=== PATIENT | female | born 1980 | race Caucasian/White ===

== ENCOUNTER 2018-04-14 13:01 | Inpatient (IN) | payer BC ==
[2018-04-14] MEDS: SOD CHLORIDE 0.9% 1,000 ML IV (13:34)
[2018-04-14 13:57] LABS: ABNORMAL IP MESSAGE 1; HEMATOCRIT 19.3 % (37.0-47.0); MEAN CORPUSCULAR HEMOGLOBIN 14.5 pg (29.0-33.0); MEAN CORPUSCULAR HGB CONC 24.9 g/dl (32.0-37.0); MEAN CORPUSCULAR VOLUME 58.5 fl (82.0-101.0); MEAN PLATELET VOLUME 8.4 fl (7.4-10.4); PLATELET COUNT 1128 10^3/UL (140-415); RETICULOCYTE COUNT # 0.031 X10^6 (0.020-0.110); RETICULOCYTE COUNT % 0.9 % (0.5-1.5)
[2018-04-14 13:57] LABS: WHITE BLOOD COUNT 5.1 10^3/ul (4.8-10.8)
[2018-04-14 13:59] LABS: ADD UMIC YES; UR ASCORBIC ACID NEGATIVE (NEGATIVE); UR BACTERIA FEW /HPF (NONE SEEN); UR BILIRUBIN (Dip) NEGATIVE (NEGATIVE); UR BLOOD (Dip) NEGATIVE (NEGATIVE); UR CLARITY CLEAR (CLEAR); UR COLOR YELLOW (YELLOW); UR GLUCOSE (Dip) NEGATIVE (NEGATIVE); UR KETONES (Dip) NEGATIVE (NEGATIVE); UR LEUKOCYTE ESTERASE (Dip) TRACE Leu/ul (NEGATIVE); UR NITRITE (Dip) NEGATIVE (NEGATIVE); UR RBC 0 /HPF (0-5); UR SQUAMOUS EPITHELIAL CELL FEW /HPF (FEW); UR TOTAL PROTEIN (Dip) NEGATIVE (NEGATIVE); UR UROBILINOGEN (Dip) NEGATIVE (NEGATIVE); UR WBC 1 /HPF (0-5)
[2018-04-14 14:07] LABS: IRON 15 ug/dl (35-150)
[2018-04-14 14:08] LABS: ADD MAN DIFF? YES; ALANINE AMINOTRANSFERASE 14 IU/L (13-69); ALBUMIN 4.8 g/dl (3.3-4.9); ALBUMIN/GLOBULIN RATIO 1.26; ALKALINE PHOSPHATASE 59 IU/L (42-121); ANION GAP 17 (5-13); ASPARTATE AMINO TRANSFERASE 32 IU/L (15-46); BILIRUBIN,INDIRECT 0.2 mg/dl (0-1.1); BILIRUBIN,TOTAL 0.2 mg/dl (0.2-1.3); BLOOD UREA NITROGEN 8 mg/dl (7-20); CALCIUM 9.1 mg/dl (8.4-10.2); CARBON DIOXIDE 23 mmol/L (21-31); CHLORIDE 99 mmol/L (97-110); CREATININE 0.48 mg/dl (0.44-1.00); Estimated GFR > 60 mL/min (>60); GLUCOSE 97 mg/dl (70-220); HEMOGLOBIN 4.8 g/dl (12.0-16.0); LACTATE DEHYDROGENASE 418 IU/L (313-618); POSITIVE DIFF @See below; POTASSIUM 3.8 mmol/L (3.5-5.1); SODIUM 139 mmol/L (135-144); TOTAL PROTEIN 8.6 g/dl (6.1-8.1)
[2018-04-14 14:16] LABS: % IRON SATURATION 3 % SAT (22-52); TOTAL IRON BINDING CAPACITY 475 ug/dl (241-421)
[2018-04-14 14:45] LABS: FERRITIN 1.7 ng/ml (6.2-137.0)
[2018-04-14 14:46] LABS: ANISOCYTOSIS 3+ (0-0); BAND NEUTROPHILS % (M) 1 % (0-4); BASOPHIL #M 0.1 10^3/ul (0.0-0.0); BASOPHILS % (M) 2 % (0-2); EOSINOPHILS % (M) 3 % (0-7); GIANT THROMBO% (M) 2 % (0-0); HYPOCHROMASIA 3+ (0-0); LYMPHOCYTES % (M) 40 % (15-51); MICROCYTOSIS 3+ (0-0); MONOCYTE #M 0.3 10^3/ul (0.3-0.9); MONOCYTES % (M) 6 % (0-11); PLATELET ESTIMATE INCREASED; POIKILOCYTOSIS 2+ (0-0); POLYCHROMASIA 3+ (0-0); REACTIVE LYMPHOCYTES #M 0.1 10^3/ul (0.0-0.0); REACTIVE LYMPHOCYTES% (M) 2 % (0-0); SCHISTOCYTES 1+ (0-0); SEG NEUT #M 2.3 10^3/ul (1.6-7.5); SEGMENTED NEUTROPHILS (M) % 46 % (39-77); SMUDGE%M 2 % (0-0); STOMATOCYTES 1+ (0-0)
[2018-04-14] MEDS ORDERED: ACETAMINOPHEN 325 MG TAB PO (16:00)
[2018-04-14] MEDS ORDERED: ONDANSETRON 4 MG INJ IV (16:00)
[2018-04-14] MEDS ORDERED: DOCUSATE SODIUM 100 MG CAP PO (17:30)
[2018-04-14] MEDS: SOD FERRIC GLUC COMPLX 125 MG in SOD CHLORIDE 0.9% 100 ML IVPB (17:44)
[2018-04-14 18:33] LABS: FOLATE 11.2 ng/ml (2.8-20.0)
[2018-04-15 04:01] LABS: ADD MAN DIFF? NO
[2018-04-15 04:13] LABS: HEMOGLOBIN A1C 5.5 % (0-5.9)
[2018-04-15 04:17] LABS: ABNORMAL IP MESSAGE 1; BASOPHIL # 0.1 10^3/ul (0.0-0.1); BASOPHILS % 1.4 % (0.0-2.0); EOSINOPHILS # 0.1 10^3/ul (0.0-0.5); HEMOGLOBIN 7.1 g/dl (12.0-16.0); LYMPHOCYTES # 1.9 10^3/ul (0.8-2.9); LYMPHOCYTES % 33.3 % (15.0-51.0); MEAN CORPUSCULAR HGB CONC 28.6 g/dl (32.0-37.0); MEAN PLATELET VOLUME 8.3 fl (7.4-10.4); MONOCYTE # 0.6 10^3/ul (0.3-0.9); MONOCYTES % 10.6 % (0.0-11.0); NEUTROPHIL # 3.1 10^3/ul (1.6-7.5); NEUTROPHILS % 53.4 % (39.0-77.0); NUCLEATED RED BLOOD CELLS% 0.3 /100WBC (0.0-0.0); PLATELET COUNT 737 10^3/UL (140-415); RETICULOCYTE COUNT # 0.003 X10^6 (0.020-0.110); RETICULOCYTE COUNT % 0.1 % (0.5-1.5)
[2018-04-15 04:17] LABS: RETICULOCYTE RBC 3.65; WHITE BLOOD COUNT 5.8 10^3/ul (4.8-10.8)
[2018-04-15 04:20] LABS: ALANINE AMINOTRANSFERASE 10 IU/L (13-69); ALBUMIN 4.1 g/dl (3.3-4.9); ALBUMIN/GLOBULIN RATIO 1.36; ALKALINE PHOSPHATASE 48 IU/L (42-121); ANION GAP 14 (5-13); ASPARTATE AMINO TRANSFERASE 17 IU/L (15-46); BILIRUBIN,INDIRECT 0.5 mg/dl (0-1.1); BILIRUBIN,TOTAL 0.5 mg/dl (0.2-1.3); BLOOD UREA NITROGEN 7 mg/dl (7-20); CALCIUM 8.7 mg/dl (8.4-10.2); CARBON DIOXIDE 23 mmol/L (21-31); CHLORIDE 104 mmol/L (97-110); CREATININE 0.47 mg/dl (0.44-1.00); Estimated GFR > 60 mL/min (>60); GLUCOSE 89 mg/dl (70-220); POTASSIUM 4.1 mmol/L (3.5-5.1); SODIUM 141 mmol/L (135-144); TOTAL PROTEIN 7.1 g/dl (6.1-8.1)
[2018-04-15 04:22] LABS: LACTATE DEHYDROGENASE 493 IU/L (313-618)
[2018-04-15 04:23] LABS: MAGNESIUM 2.1 mg/dl (1.7-2.5)
[2018-04-15 04:23] LABS: PHOSPHORUS 4.5 mg/dl (2.5-4.9)
[2018-04-15 04:43] LABS: HEMATOCRIT 24.8 % (37.0-47.0); MEAN CORPUSCULAR HEMOGLOBIN 19.2 pg (29.0-33.0)
[2018-04-15 04:44] LABS: POSITIVE DIFF @See below
[2018-04-15 05:01] LABS: INR 1.12; PROTIME 14.5 Sec (11.9-14.9); PT RATIO 1.1
[2018-04-15] MEDS: CYANOCOBALAMIN 500 MCG TAB PO (08:09)
[2018-04-15] MEDS: CALCIUM CARBONATE 1.25 GM TAB PO (08:10)
[2018-04-15] MEDS: MULTIVITAMINS THERAPEUTIC TAB PO (08:10)
[2018-04-15] MEDS: FOLIC ACID 1 MG TAB PO (08:10)
[2018-04-15 09:40] LABS: ANISOCYTOSIS 3+ (0-0); BAND NEUTROPHILS #M 0.1 10^3/ul (0.0-0.6); BAND NEUTROPHILS % (M) 2 % (0-4); BASOPHIL #M 0.2 10^3/ul (0.0-0.0); BASOPHILS % (M) 4 % (0-2); BURR CELLS 1+ (0-0); ELLIPTO 1+ (0-0); GIANT THROMBO% (M) 8 % (0-0); HYPOCHROMASIA 3+ (0-0); LYMPHOCYTES #M 1.6 10^3/ul (0.8-2.9); LYMPHOCYTES % (M) 28 % (15-51); MICROCYTOSIS 3+ (0-0); MONOCYTE #M 0.5 10^3/ul (0.3-0.9); MONOCYTES % (M) 9 % (0-11); MYELOCYTES % (M) 1 % (0-0); OVALOCYTES 1+ (0-0); PLATELET ESTIMATE INCREASED; POIKILOCYTOSIS 2+ (0-0); POLYCHROMASIA 3+ (0-0); REACTIVE LYMPHOCYTES #M 0.1 10^3/ul (0.0-0.0); REACTIVE LYMPHOCYTES% (M) 3 % (0-0); SCHISTOCYTES 1+ (0-0); SEG NEUT #M 3.1 10^3/ul (1.6-7.5); SEGMENTED NEUTROPHILS (M) % 53 % (39-77); SMUDGE%M 1 % (0-0); TARGET CELLS 1+ (0-0)
[2018-04-15] MEDS: SOD CHLORIDE 0.9% 250 ML IV* (10:33)
[2018-04-15 13:00] LABS: IMMEDIATE SPIN CROSSMATCH 1 4
[2018-04-15] MEDS: SOD FERRIC GLUC COMPLX 125 MG in SOD CHLORIDE 0.9% 100 ML IVPB (16:43)
[2018-04-15] MEDS: ACETAMINOPHEN 325 MG TAB PO ×2 (17:18→22:20)
[2018-04-16 05:02] LABS: WHITE BLOOD COUNT 5.6 10^3/ul (4.8-10.8)
[2018-04-16 05:02] LABS: ABNORMAL IP MESSAGE 1; ADD MAN DIFF? NO; BASOPHIL # 0.1 10^3/ul (0.0-0.1); BASOPHILS % 1.6 % (0.0-2.0); EOSINOPHILS # 0.2 10^3/ul (0.0-0.5); HEMOGLOBIN 10.1 g/dl (12.0-16.0); LYMPHOCYTES # 1.9 10^3/ul (0.8-2.9); LYMPHOCYTES % 34.6 % (15.0-51.0); MEAN CORPUSCULAR HEMOGLOBIN 21.2 pg (29.0-33.0); MEAN CORPUSCULAR HGB CONC 30.2 g/dl (32.0-37.0); MEAN CORPUSCULAR VOLUME 70.2 fl (82.0-101.0); MEAN PLATELET VOLUME 7.9 fl (7.4-10.4); MONOCYTE # 0.7 10^3/ul (0.3-0.9); MONOCYTES % 12.2 % (0.0-11.0); NEUTROPHIL # 2.7 10^3/ul (1.6-7.5); NEUTROPHILS % 48.1 % (39.0-77.0); PLATELET COUNT 643 10^3/UL (140-415)
[2018-04-16 05:07] LABS: HEMATOCRIT 33.4 % (37.0-47.0); POSITIVE DIFF @See below; RED BLOOD COUNT 4.76 10^6/ul (4.20-5.40)
[2018-04-16 05:27] LABS: PHOSPHORUS 5.3 mg/dl (2.5-4.9)
[2018-04-16 05:35] LABS: ANION GAP 16 (5-13); BLOOD UREA NITROGEN 12 mg/dl (7-20); CALCIUM 9.2 mg/dl (8.4-10.2); CARBON DIOXIDE 23 mmol/L (21-31); CHLORIDE 104 mmol/L (97-110); CREATININE 0.47 mg/dl (0.44-1.00); Estimated GFR > 60 mL/min (>60); GLUCOSE 92 mg/dl (70-220); POTASSIUM 4.1 mmol/L (3.5-5.1); SODIUM 143 mmol/L (135-144)
[2018-04-16] MEDS: CYANOCOBALAMIN 500 MCG TAB PO (09:17)
[2018-04-16] MEDS: MULTIVITAMINS THERAPEUTIC TAB PO (09:17)
[2018-04-16] MEDS: CALCIUM CARBONATE 1.25 GM TAB PO (09:17)
[2018-04-16] MEDS: FOLIC ACID 1 MG TAB PO (09:17)
[2018-04-16] MEDS: ACETAMINOPHEN 325 MG TAB PO (09:17)
[2018-04-16 09:56] LABS: HAPTOGLOBIN 144 mg/dL (43-212); TRANSFERRIN 372 mg/dL (188-341)
== END 2018-04-16 12:44 | disposition home or self-care (01) | DRG 812 ==
LOC: MS1 04-15 14:15 → E/R 13:01 → MS1 18:18 → TEL 15:31
PROC: 30233N1 Transfusion of Nonautologous Red Blood Cells into Peripheral Vein, Percutaneous Approach (ICD-10-PCS; principal; 2018-04-14)
DX: D64.9 Anemia, unspecified (principal); E46 Unspecified protein-calorie malnutrition; E66.01 Morbid (severe) obesity due to excess calories; Z98.84 Bariatric surgery status
CPT/HCPCS: 36415; 36430; 80048; 80053; 81001; 82607; 82728; 82746; 83010; 83036; 83540; 83615; 83735; 84100; 84443; 84466; 84703; 85025; 85045; 85610; 86850; 86900; 86901; 86920; 93005; 99285-25